=== PATIENT | male | born 1935 | race Caucasian/White ===

== ENCOUNTER 2016-07-13 19:06 | Inpatient (IN) | payer MEDICARE, BC ==
[~2016-07-13 19:06] MED LIST: ASPIR-LOW81 MG PO; CALCIUM ACETAT667 M1 PO; CALMOSEPTINE OI71 GM TP; COLCHICINE 0.60.6 MG PO; COLCRYS0.6 MG PO; COMBIVENT0.074 GM/I INH; ELIQUIS 2.5 MG2.5 MG PO; GLUCAGON EMERGEN1 MG INJ; LASIX40 MG PO; LIPITOR TAB 2020 MG PO; LOPRESSOR 25 MG25 MG PO; LORTAB 5-325 M1 EACH PO; MIRALAX PACK 171 PKT PO; NUTRITIONAL DR237 ML PO; OMEPRAZOLE40 MG PO; POLYOX WSR-3011 GM PO; PRILOSEC OTC20 MG PO; SYNTHROID25 MCG PO; TOPROL XL50 MG PO; TYLENOL W/CODEIN1 E1 PO; ZYLOPRIM 100 M100 MG PO
[2016-07-13 22:48] LABS: HEMOGLOBIN 8.9 gm/dl (14.0-17.5); RED BLOOD COUNT 3.7 M/UL (4.20-5.50); WHITE BLOOD COUNT 14.5 K/UL (4.5-11.0)
[2016-07-16 05:09] LABS: HEMOGLOBIN 7.9 gm/dl (14.0-17.5); RED BLOOD COUNT 3.35 M/UL (4.20-5.50)
[2016-07-16 05:12] LABS: WHITE BLOOD COUNT 6.6 K/UL (4.5-11.0)
[2016-07-17 06:48] LABS: HEMOGLOBIN 8.2 gm/dl (14.0-17.5); RED BLOOD COUNT 3.4 M/UL (4.20-5.50)
[2016-07-17 06:51] LABS: WHITE BLOOD COUNT 9.6 K/UL (4.5-11.0)
== END 2016-07-18 00:15 | disposition expired | DRG 291 ==
LOC: M/S 19:06
PROVIDERS: Family Medicine; Internal Medicine Nephrology; ADMIT Internal Medicine
PROC: 5A09457 Assistance with Respiratory Ventilation, 24-96 Consecutive Hours, Continuous Positive Airway Pressure (ICD-10-PCS; principal; 2016-07-15)
PROC: 5A1D60Z (ICD-10-PCS; 2016-07-16)
DX: I13.2 Hypertensive heart and chronic kidney disease with heart failure and with stage 5 chronic kidney disease, or end stage renal disease (principal); J96.22 Acute and chronic respiratory failure with hypercapnia; J96.21 Acute and chronic respiratory failure with hypoxia; G93.40 Encephalopathy, unspecified; E43 Unspecified severe protein-calorie malnutrition; N18.6 End stage renal disease; I50.33 Acute on chronic diastolic (congestive) heart failure; J94.2 Hemothorax; E87.4 Mixed disorder of acid-base balance; R18.8 Other ascites; I50.30 Unspecified diastolic (congestive) heart failure; J98.11 Atelectasis; R40.2434 Glasgow coma scale score 3-8, 24 hours or more after hospital admission; Z66 Do not resuscitate; Z51.5 Encounter for palliative care; D63.1 Anemia in chronic kidney disease; I25.10 Atherosclerotic heart disease of native coronary artery without angina pectoris; I69.320 Aphasia following cerebral infarction; I48.2 Chronic atrial fibrillation; E11.9 Type 2 diabetes mellitus without complications; E03.9 Hypothyroidism, unspecified; E78.5 Hyperlipidemia, unspecified; F01.50 Vascular dementia, unspecified severity, without behavioral disturbance, psychotic disturbance, mood disturbance, and anxiety; R19.7 Diarrhea, unspecified; R62.7 Adult failure to thrive; M10.9 Gout, unspecified; Z95.1 Presence of aortocoronary bypass graft; Z99.2 Dependence on renal dialysis; Z87.891 Personal history of nicotine dependence; Z68.20 Body mass index [BMI] 20.0-20.9, adult; Z99.81 Dependence on supplemental oxygen; Z79.01 Long term (current) use of anticoagulants; Z79.891 Long term (current) use of opiate analgesic; Z79.82 Long term (current) use of aspirin; Z79.1 Long term (current) use of non-steroidal anti-inflammatories (NSAID); Z79.899 Other long term (current) drug therapy
CPT/HCPCS: 36415; 36600; 71010; 76705; 80048; 80053; 82803; 82962; 85027; 90935; 93005; 94640; 94660; 94664; J0885; J1940; J7030; P9047